=== PATIENT | female | born 2005 | race African-American/Black ===

== ENCOUNTER 2024-01-16 14:15 | Emergency (ER) | payer OTHER ==
[2024-01-16 15:11] VITALS: O2SAT 100
[2024-01-16 15:23] LABS: BILIRUBIN,URINE NEGATIVE (NEGATIVE); GLUCOSE, URINE (UA) NEGATIVE (NEGATIVE); KETONES,URINE (UA) NEGATIVE (NEGATIVE); LEUKOCYTE ESTERASE, URINE NEGATIVE (NEGATIVE); NITRITE,URINE NEGATIVE (NEGATIVE); OCCULT BLOOD,URINE TRACE-INTA (NEGATIVE); PROTEIN,URINE NEGATIVE (NEGATIVE); UROBILINOGEN,URINE 0.2 (NORMAL) E.U./dL (NORMAL)
[2024-01-16 15:24] LABS: CLARITY,URINE CLEAR (CLEAR)
[2024-01-16 15:34] LABS: BASOPHILS % (AUTO) 0.3 %; EOSINOPHILS # (AUTO) 0.3 10^3/uL (0.0-0.7); EOSINOPHILS % (AUTO) 3.7 %; HCT - HEMATOCRIT 36.7 % (37.0-47.0); HGB - HEMOGLOBIN 11.8 g/dL (12.0-16.0); LYMPHOCYTES # (AUTO) 2.3 10^3/uL (1.5-3.5); LYMPHOCYTES % (AUTO) 34.2 %; MEAN CORPUSCULAR HEMOGLOBIN 25.2 pg (27.0-31.0); MEAN CORPUSCULAR HGB CONC 32.2 g/dL (32.0-36.0); MEAN CORPUSCULAR VOLUME 78.4 fL (81.0-99.0); MEAN PLATELET VOLUME 11.5 fL (7.9-10.8); MONOCYTES # (AUTO) 0.5 10^3/uL (0.0-1.0); MONOCYTES % (AUTO) 6.8 %; NEUTROPHILS # (AUTO) 3.7 10^3/uL (1.5-6.6); NEUTROPHILS % (AUTO) 54.7 %; PLT - PLATELET COUNT 233 10^3/uL (130-450); RED BLOOD COUNT 4.68 10^6/uL (4.20-5.40); RED CELL DISTRIBUTION WIDTH 13.8 % (12.0-15.0); WHITE BLOOD COUNT 6.8 x10^3/uL (4.8-10.8)
[2024-01-16 15:44] LABS: ALBUMIN 4.1 g/dL (3.2-5.5); ALBUMIN/GLOBULIN RATIO 1.1 (1.0-2.2); BILIRUBIN,TOTAL 0.5 mg/dL (0.2-1.0); CALCIUM 9.5 mg/dL (8.5-10.3); CREATININE 0.8 mg/dL (0.6-1.3); POTASSIUM 3.4 mmol/L (3.5-4.5); TOTAL PROTEIN 7.8 g/dL (6.4-8.9)
[2024-01-16 17:29] VITALS: BP 125/86
--- NOTE | 2024-01-16 17:36 | Ultrasound Report ---
PROCEDURE: Pelvic w/Transvag+Doppler Comp INDICATIONS: pelvic pain, vag bleed TECHNIQUE: Real-time scanning was performed of the pelvic organs, with image documentation. Additional endovagi nal scanning was necessary due to incomplete visualization of the adnexal and endometrial structures by transabdominal scanning. Doppler interrogation was performed of the ovaries bilaterally. COMPARISON: None. FINDINGS: Uterus: Uterus is anteverted and normal in size at 6.2 x 3.0 x 3.7 cm. The myometrium is heterogene ous. The endometrium measures 2 mm in combined thickness. No fibroids. Ovaries: The right ovary measures 2.0 x 2.0 x 1.9 cm, with a calculated ovarian volume of 3.9 cc. T he left ovary measures 2.8 x 2.3 x 1.8 cm, with a calculated ovarian volume of 6.2 cc. Appropriate b lood flow to the ovaries with Doppler interrogation. Less than 12 follicles can be seen in each ova ry. No adnexal masses are seen. No cystic lesions measuring greater than 3 cm. Other: No pathologic free abdominal or pelvic fluid. IMPRESSION: Normal appearance of the uterus and ovaries. Appropriate blood flow is seen to both ovaries. Reviewed by: Iftikhar Andrews MD on 01/16/2024 5:34 PM PDT Approved by: Iftikhar Andrews MD on 01/16/2024 5:34 PM PDT Station ID: [id number]
--- NOTE | 2024-01-16 17:46 | ED Physician Documentation ---
History of Present Illness - Stated complaint Stated Complaint: ABD PX, - Chief complaint Chief Complaint: Abd Pain - History obtained from History obtained from: Patient - Additonal information Additional information: The patient comes to the emergency department chief complaint of vaginal bleeding after not having a period in 2 years. Patient uses the Depo-Provera shot which is wearing off just now. She is also actively weaning her baby after breast-feeding for The past year. The patient denies any pain. She states that she has had what seems like a rather heavy. She has not seen an OB currently. PD PAST MEDICAL HISTORY - Past Medical History Past Medical History: No Cardiovascular: None Respiratory: None Neuro: None Endocrine/Autoimmune: None GI: None RESIDENT ASSISTANT CNA: None : None HEENT: None Psych: None Musculoskeletal: None Derm: None - Past Surgical History Past Surgical History: No - Allergies Allergies/Adverse Reactions: Allergies Allergy/AdvReac Type Severity Reaction Status Date / Time No Known Drug Allergies Allergy Verified 01/16/24 15:01 - Social History Does the pt smoke?: No Smoking Status: Never smoker PD ED PE NORMAL - Vitals Vital signs reviewed: Yes - General General: Alert and oriented X 3, No acute distress - HEENT HEENT: Atraumatic, PERRL - Neck Neck: No JVD - Cardiac Cardiac: RRR, No murmur - Respiratory Respiratory: No respiratory distress, Clear bilaterally - Abdomen Abdomen: Soft, Non tender, Non distended - Derm Derm: Normal color, Warm and dry, No rash - Extremities Extremities: No deformity, No edema - Neuro Neuro: Alert and oriented X 3 - Psych Psych: Normal mood, Normal affect Results - Vitals Vitals: Oxygen O2 Source Room air - Labs Labs: Laboratory Tests 01/16/24 01/16/24 01/16/24 15:10 15:25 15:25 WBC 6.8 RBC 4.68 Hgb 11.8 L Hct 36.7 L MCV 78.4 L MCH 25.2 L MCHC 32.2 RDW 13.8 Plt Count 233 MPV 11.5 H Neut # (Auto) 3.7 Lymph # (Auto) 2.3 Mercer # (Auto) 0.5 Eos # (Auto) 0.3 Baso # (Auto) 0.0 Absolute Nucleated RBC 0.00 Nucleated RBC % 0.0 Sodium 140 Potassium 3.4 L Chloride 105 Carbon Dioxide 28 Anion Gap 7.0 BUN 10 Creatinine 0.8 Estimated GFR (MDRD) 92 Glucose 66 L Calcium 9.5 Total Bilirubin 0.5 AST 147 H ALT 38 Alkaline Phosphatase 83 Total Protein 7.8 Albumin 4.1 Globulin 3.7 Albumin/Globulin Ratio 1.1 Lipase 56 Urine Color YELLOW Urine Clarity CLEAR Urine pH 6.0 Ur Specific Arp 1.020 Urine Protein NEGATIVE Urine Glucose (UA) NEGATIVE Urine Ketones NEGATIVE Urine Occult Blood TRACE-INTA Urine Nitrite NEGATIVE Urine Bilirubin NEGATIVE Urine Urobilinogen 0.2 (NORMAL) Ur Leukocyte Esterase NEGATIVE Ur Microscopic Review NOT INDICATED Urine Culture Comments NOT INDICATED PD Medical Decision Making - ED course Complexity details: reviewed results, re-evaluated patient, considered differential, d/w family ED course: The patient was worked up with laboratory studies including CBC showing a normal white blood cell count and mildly decreased H&H. Her potassium is ever so slightly low at 3.4. Urinalysis unremarkable. I discussed with the patient that I suspect her dysfunctional uterine bleeding is due to combination of the Depo wearing off and the patient beginning the weaning process with her child. However, I have advised her to see OB if she has further concerns about her cycles and her hormones. No emergent condition identified. The patient has been given the usual medications for return. Departure - Departure Disposition: 01 Home, Self Care Clinical Impression: Dysfunctional uterine bleeding Condition: Stable Instructions: ED Bleed Irregular Vaginal Comments: Your ultrasound, blood work, and urinalysis all look good. The change in bleeding is most likely due to some combination of hormonal influences including the Depo-Provera wearing off and the weaning of your baby. There is no evidence of any concerning condition and most likely, your body is just in the process of coming back to normal functioning after the , breast-feeding, and long- term control. Most likely, the bleeding will taper off over the next couple of weeks. Please call to make the next available appointment with our women's health clinic to discuss other control options and any further concerns you may have. Forms: PCP List Discharge Date/Time: 01/16/24 18:07
== END 2024-01-16 18:07 | disposition home or self-care (01) ==
LOC: ED 14:15
DX: N93.8 Other specified abnormal uterine and vaginal bleeding (principal)
CPT/HCPCS: 36415; 80053; 81001; 81003; 83690; 85025; 87086; 93975; 99283; 99284